=== PATIENT | male | born 1975 | race Caucasian/White ===

== ENCOUNTER 2021-12-24 02:44 | Inpatient (IN) | payer OTHER ==
[2021-12-24] MEDS ORDERED: P-EPHED 60MG/TRIPROLIDI 2.5MG TABLET PO PRN (03:37)
[2021-12-24] MEDS ORDERED: MAGNESIUM CITRATE 300 ML BOTTLE PO PRN (03:37)
[2021-12-24] MEDS ORDERED: NALOXONE HCL 0.4 MG/ML VIAL IM PRN (03:37)
[2021-12-24] MEDS ORDERED: ONDANSETRON *ODT* 4 MG TABLET SL PRN (03:37)
[2021-12-24] MEDS ORDERED: LOPERAMIDE HCL 2 MG CAPSULE PO PRN (03:37)
[2021-12-24] MEDS ORDERED: MAG HYDROX/AL HYDROX/SIMETH 30 ML UNIT-DOSE CUP PO PRN (03:37)
[2021-12-24] MEDS ORDERED: MAGNESIUM HYDROX 2400MG/30ML ORAL SUSPENSION 30 ML CUP PO PRN (03:37)
[2021-12-24] MEDS ORDERED: BENZOCAINE/MENTHOL (CHLORASEPTIC ) LOZENGE MM PRN (03:37)
[2021-12-24] MEDS ORDERED: guaiFENesin 200 MG/10 ML 10 ML UNIT-DOSE CUPS PO PRN (03:37)
[2021-12-24] MEDS ORDERED: NICOTINE POLACRILEX 2 MG GUM BUC PRN (03:37)
[2021-12-24] MEDS ORDERED: hydrOXYzine PAMOATE 25 MG CAPSULE (FP) PO PRN (03:37)
[2021-12-24] MEDS ORDERED: DICYCLOMINE HCL 10 MG CAPSULE PO PRN (03:37)
[2021-12-24] MEDS ORDERED: BISMUTH SUBSALICYLATE 524 MG/30 ML PO PRN (03:37)
[2021-12-24] MEDS ORDERED: ACETAMINOPHEN 325 MG TABLET (FP) PO PRN ×2 (03:37)
[2021-12-24 10:04] VITALS: BMI 50.2
[2021-12-24] MEDS ORDERED: methaDONE HCL 10 MG TABLET PO SCH (10:15)
[2021-12-24] MEDS ORDERED: chlordiazePOXIDE HCL 25 MG CAPSULE PO PRN (10:24)
[2021-12-24] MEDS ORDERED: methaDONE HCL 10 MG TABLET ONE (10:41)
[2021-12-24] MEDS ORDERED: methaDONE HCL 40 MG DISPERSABLE TABLET ONE (10:41)
[2021-12-24] MEDS: chlordiazePOXIDE HCL 25 MG CAPSULE PO SCH ×3 (10:45→22:37)
[2021-12-24] MEDS: PRENATAL VITAMINS W/ FOLIC ACID TABLET (FP) PO SCH (10:55)
[2021-12-24] MEDS: METHOCARBAMOL 500 MG TABLET PO PRN (10:55)
[2021-12-24] MEDS: LISINOPRIL 10 MG TABLET PO SCH (10:55)
[2021-12-24] MEDS: INSULIN (NOVOLOG) ASPART 100 UNITS/ML 10ML VIAL SQ SCH ×3 (12:28→22:36)
[2021-12-24] MEDS: NICOTINE 14 MG/24 HOURS TOPICAL PATCH TD SCH (12:28)
[2021-12-24] MEDS: BACITRACIN 15 GM TUBE TOPICAL OINTMENT TP SCH (12:29)
[2021-12-24] MEDS: TORSEMIDE 20 MG TABLET (FP) PO SCH ×2 (12:29→22:35)
[2021-12-24] MEDS: SILVER SULFADIAZINE 1% TOP CREAM 50 GM JAR TP SCH ×2 (12:30→22:38)
[2021-12-24] MEDS ORDERED: INSULIN SLIDING SCALE (NOVOLOG) 1 VIAL SQ ONE ×2 (12:32→17:07)
[2021-12-24 15:08] LABS: PH,URINE 6.5 (5.0-8.0); URINE APPEARANCE CLEAR; URINE BILIRUBIN NEGATIVE (NEGATIVE); URINE COLOR YELLOW; URINE GLUCOSE (UA) 3+ (NEGATIVE); URINE KETONE NEGATIVE (NEGATIVE); URINE LEUK ESTERASE NEGATIVE (NEGATIVE); URINE NITRITE NEGATIVE (NEGATIVE); URINE PROTEIN NEGATIVE (NEGATIVE); URINE UROBILINOGEN 0.2 mg/dL (0.2-1.0)
[2021-12-24] MEDS ORDERED: INSULIN (NOVOLOG) ASPART 100 UNITS/ML 10ML VIAL SQ ONE (16:56)
[2021-12-24] MEDS: metFORMIN HCL 500 MG TABLET (FP) PO SCH (17:15)
[2021-12-24] MEDS: INSULIN (LEVEMIR) 100 UNITS/ML UNITS SQ SCH (22:35)
[2021-12-24] MEDS: CARVEDILOL 25 MG TABLET (FP) PO SCH (22:35)
[2021-12-24] MEDS: MELATONIN 5 MG TABLETS PO SCH (22:36)
[2021-12-24] MEDS: THIAMINE HCL 100 MG TABLET (FP) PO SCH (22:38)
[2021-12-25] MEDS ORDERED: methaDONE HCL 10 MG TABLET ONE (04:15)
[2021-12-25] MEDS ORDERED: methaDONE HCL 40 MG DISPERSABLE TABLET ONE (04:15)
[2021-12-25] MEDS: INSULIN (NOVOLOG) ASPART 100 UNITS/ML 10ML VIAL SQ SCH ×4 (06:21→21:58)
[2021-12-25] MEDS: metFORMIN HCL 500 MG TABLET (FP) PO SCH ×2 (06:22→18:26)
[2021-12-25] MEDS: chlordiazePOXIDE HCL 25 MG CAPSULE PO SCH ×4 (06:41→22:33)
[2021-12-25] MEDS: INSULIN (LEVEMIR) 100 UNITS/ML UNITS SQ SCH ×2 (09:01→21:59)
[2021-12-25] MEDS: DIGOXIN 0.125 MG TABLET PO SCH (10:29)
[2021-12-25] MEDS: LISINOPRIL 10 MG TABLET PO SCH (10:30)
[2021-12-25] MEDS: NICOTINE 14 MG/24 HOURS TOPICAL PATCH TD SCH (10:30)
[2021-12-25] MEDS: TORSEMIDE 20 MG TABLET (FP) PO SCH ×2 (10:30→22:33)
[2021-12-25] MEDS: PRENATAL VITAMINS W/ FOLIC ACID TABLET (FP) PO SCH (10:31)
[2021-12-25] MEDS: IBUPROFEN 400 MG TABLET (FP) PO PRN ×2 (10:31→18:30)
[2021-12-25] MEDS: CARVEDILOL 25 MG TABLET (FP) PO SCH ×2 (10:33→22:33)
[2021-12-25] MEDS: SILVER SULFADIAZINE 1% TOP CREAM 50 GM JAR TP SCH ×2 (10:33→23:07)
[2021-12-25] MEDS: BACITRACIN 0.9 GM PACKET TP SCH (11:01)
[2021-12-25] MEDS: BACITRACIN 15 GM TUBE TOPICAL OINTMENT TP SCH (11:03)
[2021-12-25] MEDS ORDERED: INSULIN SLIDING SCALE (NOVOLOG) 1 VIAL SQ ONE ×2 (12:51→21:58)
[2021-12-25] MEDS: THIAMINE HCL 100 MG TABLET (FP) PO SCH (22:33)
[2021-12-25] MEDS: MELATONIN 5 MG TABLETS PO SCH (22:34)
[2021-12-25] MEDS: METHOCARBAMOL 500 MG TABLET PO PRN (22:36)
[2021-12-26] MEDS ORDERED: methaDONE HCL 10 MG TABLET ONE (04:52)
[2021-12-26] MEDS ORDERED: methaDONE HCL 40 MG DISPERSABLE TABLET ONE (04:52)
[2021-12-26] MEDS: chlordiazePOXIDE HCL 25 MG CAPSULE PO SCH ×4 (05:31→23:51)
[2021-12-26] MEDS: IBUPROFEN 400 MG TABLET (FP) PO PRN ×2 (05:33→18:40)
[2021-12-26] MEDS: metFORMIN HCL 500 MG TABLET (FP) PO SCH ×2 (06:45→17:30)
[2021-12-26] MEDS: INSULIN (NOVOLOG) ASPART 100 UNITS/ML 10ML VIAL SQ SCH ×4 (08:03→23:30)
[2021-12-26] MEDS: INSULIN (LEVEMIR) 100 UNITS/ML UNITS SQ SCH ×2 (09:50→23:45)
[2021-12-26] MEDS: NICOTINE 14 MG/24 HOURS TOPICAL PATCH TD SCH (10:45)
[2021-12-26] MEDS: BACITRACIN 0.9 GM PACKET TP SCH (10:46)
[2021-12-26] MEDS: SILVER SULFADIAZINE 1% TOP CREAM 50 GM JAR TP SCH ×2 (10:46→23:50)
[2021-12-26] MEDS: PRENATAL VITAMINS W/ FOLIC ACID TABLET (FP) PO SCH (10:47)
[2021-12-26] MEDS: DIGOXIN 0.125 MG TABLET PO SCH (10:47)
[2021-12-26] MEDS: TORSEMIDE 20 MG TABLET (FP) PO SCH ×2 (10:47→23:30)
[2021-12-26] MEDS: CARVEDILOL 25 MG TABLET (FP) PO SCH ×2 (10:47→23:30)
[2021-12-26] MEDS: LISINOPRIL 10 MG TABLET PO SCH (10:47)
[2021-12-26] MEDS: METHOCARBAMOL 500 MG TABLET PO PRN (10:49)
[2021-12-26 10:50] LABS: HEMATOCRIT 38.8 % (35.4-49); HEMOGLOBIN 12.6 GM/dL (11.7-16.9); MCH 31.2 pg (25.7-33.7); MCHC 32.3 g/dl (32.0-35.9); MEAN CELL VOLUME 96.6 fl (80-96); MEAN PLT VOLUME 12.5 fl (7.5-11.1); PLATELET COUNT 143 10^3/uL (134-434); RBC 4.02 M/mm3 (4.00-5.60); WHITE BLOOD COUNT 8.7 K/mm3 (4.0-10.0)
[2021-12-26 10:58] LABS: CHLORIDE 95 mmol/L (98-107); SODIUM 134 mmol/L (136-145)
[2021-12-26 11:06] LABS: ANION GAP 6 MMOL/L (8-16); BLOOD UREA NITROGEN 37.1 mg/dL (7-18); CALCIUM 9.3 mg/dL (8.5-10.1); CO2 33 mmol/L (21-32)
[2021-12-26 11:09] LABS: SGOT/AST 19 U/L (15-37); SGPT/ALT 39 U/L (13-61)
[2021-12-26 11:10] LABS: CREATININE 1.5 mg/dL (0.55-1.3)
[2021-12-26 11:11] LABS: BILIRUBIN,TOTAL 0.7 mg/dL (0.2-1); TOT PROT 6.8 g/dl (6.4-8.2)
[2021-12-26 11:12] LABS: ALK PHOS 107 U/L (45-117)
[2021-12-26 11:21] LABS: GLUCOSE,RANDOM 426 mg/dL (74-106)
[2021-12-26] MEDS ORDERED: INSULIN SLIDING SCALE (NOVOLOG) 1 VIAL SQ ONE ×3 (11:46→17:19)
[2021-12-26] MEDS: MELATONIN 5 MG TABLETS PO SCH (23:50)
[2021-12-26] MEDS: THIAMINE HCL 100 MG TABLET (FP) PO SCH (23:51)
[2021-12-27] MEDS ORDERED: chlordiazePOXIDE HCL 10 MG CAPSULE PO PRN
[2021-12-27] MEDS ORDERED: methaDONE HCL 40 MG DISPERSABLE TABLET ONE (04:32)
[2021-12-27] MEDS ORDERED: methaDONE HCL 10 MG TABLET ONE (04:32)
[2021-12-27] MEDS: chlordiazePOXIDE HCL 10 MG CAPSULE PO SCH ×4 (07:20→22:38)
[2021-12-27] MEDS: metFORMIN HCL 500 MG TABLET (FP) PO SCH ×2 (07:25→16:37)
[2021-12-27] MEDS ORDERED: INSULIN SLIDING SCALE (NOVOLOG) 1 VIAL SQ ONE ×4 (07:26→16:31)
[2021-12-27] MEDS: IBUPROFEN 400 MG TABLET (FP) PO PRN (07:28)
[2021-12-27] MEDS: INSULIN (NOVOLOG) ASPART 100 UNITS/ML 10ML VIAL SQ SCH ×4 (07:30→22:38)
[2021-12-27] MEDS: INSULIN (LEVEMIR) 100 UNITS/ML UNITS SQ SCH ×2 (09:46→22:37)
[2021-12-27] MEDS: SILVER SULFADIAZINE 1% TOP CREAM 50 GM JAR TP SCH ×2 (10:34→22:38)
[2021-12-27] MEDS: LISINOPRIL 10 MG TABLET PO SCH (10:34)
[2021-12-27] MEDS: CARVEDILOL 25 MG TABLET (FP) PO SCH ×2 (10:36→22:30)
[2021-12-27] MEDS: BACITRACIN 0.9 GM PACKET TP SCH (10:36)
[2021-12-27] MEDS: TORSEMIDE 20 MG TABLET (FP) PO SCH ×2 (10:37→22:30)
[2021-12-27] MEDS: DIGOXIN 0.125 MG TABLET PO SCH (10:37)
[2021-12-27] MEDS: PRENATAL VITAMINS W/ FOLIC ACID TABLET (FP) PO SCH (10:38)
[2021-12-27] MEDS: NICOTINE 14 MG/24 HOURS TOPICAL PATCH TD SCH (10:38)
[2021-12-27] MEDS: MELATONIN 5 MG TABLETS PO SCH (22:32)
[2021-12-27] MEDS: THIAMINE HCL 100 MG TABLET (FP) PO SCH (22:38)
[2021-12-28] MEDS ORDERED: methaDONE HCL 40 MG DISPERSABLE TABLET ONE (03:33)
[2021-12-28] MEDS ORDERED: methaDONE HCL 10 MG TABLET ONE (03:33)
[2021-12-28] MEDS ORDERED: INSULIN SLIDING SCALE (NOVOLOG) 1 VIAL SQ ONE ×3 (05:36→12:04)
[2021-12-28] MEDS: chlordiazePOXIDE HCL 10 MG CAPSULE PO SCH ×2 (05:37→18:43)
[2021-12-28] MEDS: metFORMIN HCL 500 MG TABLET (FP) PO SCH ×2 (06:05→17:24)
[2021-12-28] MEDS: INSULIN (NOVOLOG) ASPART 100 UNITS/ML 10ML VIAL SQ SCH ×4 (06:40→21:49)
[2021-12-28] MEDS: NICOTINE 14 MG/24 HOURS TOPICAL PATCH TD SCH (11:18)
[2021-12-28] MEDS: LISINOPRIL 10 MG TABLET PO SCH (11:18)
[2021-12-28] MEDS: PRENATAL VITAMINS W/ FOLIC ACID TABLET (FP) PO SCH (11:18)
[2021-12-28] MEDS: SILVER SULFADIAZINE 1% TOP CREAM 50 GM JAR TP SCH ×2 (11:18→23:05)
[2021-12-28] MEDS: DIGOXIN 0.125 MG TABLET PO SCH (11:19)
[2021-12-28] MEDS: BACITRACIN 0.9 GM PACKET TP SCH (11:20)
[2021-12-28] MEDS: CARVEDILOL 25 MG TABLET (FP) PO SCH ×2 (11:20→21:51)
[2021-12-28] MEDS: TORSEMIDE 20 MG TABLET (FP) PO SCH ×2 (11:20→21:51)
[2021-12-28] MEDS: INSULIN (LEVEMIR) 100 UNITS/ML UNITS SQ SCH ×2 (11:34→21:48)
[2021-12-28] MEDS: MELATONIN 5 MG TABLETS PO SCH (21:51)
[2021-12-28] MEDS: THIAMINE HCL 100 MG TABLET (FP) PO SCH (21:51)
[2021-12-28] MEDS: IBUPROFEN 400 MG TABLET (FP) PO PRN (22:06)
[2021-12-29] MEDS ORDERED: methaDONE HCL 40 MG DISPERSABLE TABLET ONE (04:16)
[2021-12-29] MEDS ORDERED: methaDONE HCL 10 MG TABLET ONE (04:16)
[2021-12-29] MEDS ORDERED: chlordiazePOXIDE HCL 10 MG CAPSULE PO ONE (05:00)
[2021-12-29] MEDS: INSULIN (NOVOLOG) ASPART 100 UNITS/ML 10ML VIAL SQ SCH ×2 (06:23→11:59)
[2021-12-29] MEDS: metFORMIN HCL 500 MG TABLET (FP) PO SCH (06:23)
[2021-12-29] MEDS ORDERED: INSULIN SLIDING SCALE (NOVOLOG) 1 VIAL SQ ONE ×2 (06:33→12:00)
[2021-12-29] MEDS: TORSEMIDE 20 MG TABLET (FP) PO SCH (10:39)
[2021-12-29] MEDS: BACITRACIN 0.9 GM PACKET TP SCH (10:39)
[2021-12-29] MEDS: CARVEDILOL 25 MG TABLET (FP) PO SCH (10:39)
[2021-12-29] MEDS: NICOTINE 14 MG/24 HOURS TOPICAL PATCH TD SCH (10:40)
[2021-12-29] MEDS: LISINOPRIL 10 MG TABLET PO SCH (10:40)
[2021-12-29] MEDS: PRENATAL VITAMINS W/ FOLIC ACID TABLET (FP) PO SCH (10:40)
[2021-12-29] MEDS: DIGOXIN 0.125 MG TABLET PO SCH (10:40)
[2021-12-29] MEDS: INSULIN (LEVEMIR) 100 UNITS/ML UNITS SQ SCH (10:42)
[2021-12-29] MEDS: SILVER SULFADIAZINE 1% TOP CREAM 50 GM JAR TP SCH (10:44)
[2021-12-29 13:07] VITALS: BP 115/64; PULSE 84; TEMP 98.2
[2021-12-30] MEDS ORDERED: methaDONE HCL 10 MG TABLET PO SCH (06:00)
== END 2021-12-29 15:01 | disposition other institution (70) | DRG 773 ==
LOC: YASAS 02:44 → Y3N 04:18
PROVIDERS: ADMIT Allergy & Immunology; ATTEND Surgery
PROC: HZ2ZZZZ Detoxification Services for Substance Abuse Treatment (ICD-10-PCS; principal; 2021-12-24)
DX: F10.230 Alcohol dependence with withdrawal, uncomplicated (principal); F11.20 Opioid dependence, uncomplicated; F14.20 Cocaine dependence, uncomplicated; F17.210 Nicotine dependence, cigarettes, uncomplicated; F19.24 Other psychoactive substance dependence with psychoactive substance-induced mood disorder; F34.1 Dysthymic disorder; I25.10 Atherosclerotic heart disease of native coronary artery without angina pectoris; I13.0 Hypertensive heart and chronic kidney disease with heart failure and stage 1 through stage 4 chronic kidney disease, or unspecified chronic kidney disease; I50.9 Heart failure, unspecified; N17.9 Acute kidney failure, unspecified; E88.09 Other disorders of plasma-protein metabolism, not elsewhere classified; E11.65 Type 2 diabetes mellitus with hyperglycemia; E11.622 Type 2 diabetes mellitus with other skin ulcer; L97.328 Non-pressure chronic ulcer of left ankle with other specified severity; I83.12 Varicose veins of left lower extremity with inflammation; I87.8 Other specified disorders of veins; Z79.4 Long term (current) use of insulin; E66.01 Morbid (severe) obesity due to excess calories; Z68.43 Body mass index [BMI] 50.0-59.9, adult; Z95.0 Presence of cardiac pacemaker; Z91.041 Radiographic dye allergy status; Z28.310 Unvaccinated for COVID-19
CPT/HCPCS: 36415; 73610-TC-LT-FY; 73630-TC-LT; 80053; 80162; 81003; 82962; 83036; 85025; 85027; 85651; 86140; 86780; 93005; 93010; 99281-25; C9803-CS; U0003; U0005

== ENCOUNTER 2021-12-29 15:14 | Inpatient (IN) | payer OTHER ==
[2021-12-29] MEDS ORDERED: MAGNESIUM CITRATE 300 ML BOTTLE PO PRN (16:07)
[2021-12-29] MEDS ORDERED: NICOTINE 10 MG CARTRIDGE (INHALER) IH PRN (16:07)
[2021-12-29] MEDS ORDERED: MAGNESIUM HYDROX 2400MG/30ML ORAL SUSPENSION 30 ML CUP PO PRN (16:07)
[2021-12-29] MEDS ORDERED: P-EPHED 60MG/TRIPROLIDI 2.5MG TABLET PO PRN (16:07)
[2021-12-29] MEDS ORDERED: BENZOCAINE/MENTHOL (CHLORASEPTIC ) LOZENGE MM PRN (16:07)
[2021-12-29] MEDS ORDERED: LOPERAMIDE HCL 2 MG CAPSULE PO PRN (16:07)
[2021-12-29] MEDS ORDERED: guaiFENesin 200 MG/10 ML 10 ML UNIT-DOSE CUPS PO PRN (16:07)
[2021-12-29] MEDS: PRENATAL VITAMINS W/ FOLIC ACID TABLET (FP) PO SCH (16:57)
[2021-12-29] MEDS: NICOTINE 7 MG/24 HOURS TOPICAL PATCH TD SCH (17:16)
[2021-12-29] MEDS: MAG HYDROX/AL HYDROX/SIMETH 30 ML UNIT-DOSE CUP PO PRN (17:36)
[2021-12-29] MEDS: hydrOXYzine PAMOATE 25 MG CAPSULE (FP) PO SCH ×2 (17:36→21:45)
[2021-12-29] MEDS ORDERED: metFORMIN HCL 500 MG TABLET (FP) PO ONE (17:42)
[2021-12-29] MEDS: CARVEDILOL 25 MG TABLET (FP) PO SCH (21:45)
[2021-12-29] MEDS: THIAMINE HCL 100 MG TABLET (FP) PO SCH (21:45)
[2021-12-29] MEDS: MELATONIN 5 MG TABLETS PO SCH (21:45)
[2021-12-29] MEDS: INSULIN (LEVEMIR) 100 UNITS/ML UNITS SQ SCH (21:51)
[2021-12-30] MEDS ORDERED: methaDONE HCL 10 MG TABLET PO SCH (06:00)
[2021-12-30] MEDS: TORSEMIDE 20 MG TABLET (FP) PO SCH ×2 (06:28→14:28)
[2021-12-30] MEDS: hydrOXYzine PAMOATE 25 MG CAPSULE (FP) PO SCH ×5 (06:29→21:10)
[2021-12-30] MEDS ORDERED: methaDONE HCL 40 MG DISPERSABLE TABLET ONE (06:29)
[2021-12-30] MEDS ORDERED: methaDONE HCL 10 MG TABLET ONE (06:29)
[2021-12-30] MEDS: metFORMIN HCL 500 MG TABLET (FP) PO SCH ×2 (06:37→17:05)
[2021-12-30] MEDS: IBUPROFEN 400 MG TABLET (FP) PO PRN ×2 (08:03→21:10)
[2021-12-30] MEDS: INSULIN (LEVEMIR) 100 UNITS/ML UNITS SQ SCH ×2 (09:35→21:49)
[2021-12-30] MEDS: DIGOXIN 0.125 MG TABLET PO SCH (09:37)
[2021-12-30] MEDS: NICOTINE 7 MG/24 HOURS TOPICAL PATCH TD SCH (09:37)
[2021-12-30] MEDS: CARVEDILOL 25 MG TABLET (FP) PO SCH ×2 (09:37→21:09)
[2021-12-30] MEDS: PRENATAL VITAMINS W/ FOLIC ACID TABLET (FP) PO SCH (09:37)
[2021-12-30] MEDS: LISINOPRIL 10 MG TABLET PO SCH (09:38)
[2021-12-30] MEDS: MAG HYDROX/AL HYDROX/SIMETH 30 ML UNIT-DOSE CUP PO PRN (12:18)
[2021-12-30] MEDS ORDERED: INSULIN (NOVOLOG) ASPART 100 UNITS/ML 10ML VIAL ONE (18:06)
[2021-12-30] MEDS: INSULIN SLIDING SCALE (NOVOLOG) 1 VIAL SQ SCH ×2 (18:07→21:09)
[2021-12-30] MEDS: MELATONIN 5 MG TABLETS PO SCH (21:10)
[2021-12-30] MEDS: THIAMINE HCL 100 MG TABLET (FP) PO SCH (21:10)
[2021-12-31] MEDS ORDERED: methaDONE HCL 40 MG DISPERSABLE TABLET ONE (04:28)
[2021-12-31] MEDS ORDERED: methaDONE HCL 10 MG TABLET ONE (04:28)
[2021-12-31] MEDS: TORSEMIDE 20 MG TABLET (FP) PO SCH ×2 (06:41→15:11)
[2021-12-31] MEDS: INSULIN SLIDING SCALE (NOVOLOG) 1 VIAL SQ SCH ×4 (07:09→21:19)
[2021-12-31] MEDS: hydrOXYzine PAMOATE 25 MG CAPSULE (FP) PO SCH ×3 (07:11→13:39)
[2021-12-31] MEDS: metFORMIN HCL 500 MG TABLET (FP) PO SCH ×2 (07:11→17:12)
[2021-12-31] MEDS ORDERED: INSULIN (NOVOLOG) ASPART 100 UNITS/ML 10ML VIAL ONE ×2 (07:13→12:00)
[2021-12-31] MEDS: INSULIN (LEVEMIR) 100 UNITS/ML UNITS SQ SCH ×2 (07:14→21:52)
[2021-12-31] MEDS: DIGOXIN 0.125 MG TABLET PO SCH (09:46)
[2021-12-31] MEDS: CARVEDILOL 25 MG TABLET (FP) PO SCH ×2 (09:46→21:18)
[2021-12-31] MEDS: LISINOPRIL 10 MG TABLET PO SCH (09:47)
[2021-12-31] MEDS: NICOTINE 7 MG/24 HOURS TOPICAL PATCH TD SCH (09:47)
[2021-12-31] MEDS: PRENATAL VITAMINS W/ FOLIC ACID TABLET (FP) PO SCH (09:47)
[2021-12-31] MEDS: MAG HYDROX/AL HYDROX/SIMETH 30 ML UNIT-DOSE CUP PO PRN (09:48)
[2021-12-31] MEDS ORDERED: hydrOXYzine PAMOATE 25 MG CAPSULE (FP) PO PRN (15:35)
[2021-12-31] MEDS: ACETAMINOPHEN 325 MG TABLET (FP) PO PRN (17:12)
[2021-12-31] MEDS: MELATONIN 5 MG TABLETS PO SCH (21:17)
[2021-12-31] MEDS: THIAMINE HCL 100 MG TABLET (FP) PO SCH (21:18)
[2021-12-31] MEDS: IBUPROFEN 400 MG TABLET (FP) PO PRN (21:18)
[2022-01-01] MEDS ORDERED: methaDONE HCL 10 MG TABLET ONE (03:19)
[2022-01-01] MEDS ORDERED: methaDONE HCL 40 MG DISPERSABLE TABLET ONE (03:20)
[2022-01-01] MEDS: metFORMIN HCL 500 MG TABLET (FP) PO SCH ×2 (06:12→17:25)
[2022-01-01] MEDS: ACETAMINOPHEN 325 MG TABLET (FP) PO PRN ×2 (06:12→17:26)
[2022-01-01] MEDS: TORSEMIDE 20 MG TABLET (FP) PO SCH ×2 (06:12→14:37)
[2022-01-01] MEDS: INSULIN SLIDING SCALE (NOVOLOG) 1 VIAL SQ SCH ×4 (06:25→22:18)
[2022-01-01] MEDS: INSULIN (LEVEMIR) 100 UNITS/ML UNITS SQ SCH ×2 (06:50→22:15)
[2022-01-01] MEDS: LISINOPRIL 10 MG TABLET PO SCH (10:28)
[2022-01-01] MEDS: CARVEDILOL 25 MG TABLET (FP) PO SCH ×2 (10:28→21:47)
[2022-01-01] MEDS: NICOTINE 7 MG/24 HOURS TOPICAL PATCH TD SCH (10:29)
[2022-01-01] MEDS: DIGOXIN 0.125 MG TABLET PO SCH (10:29)
[2022-01-01] MEDS: PRENATAL VITAMINS W/ FOLIC ACID TABLET (FP) PO SCH (10:29)
[2022-01-01] MEDS ORDERED: INSULIN (NOVOLOG) ASPART 100 UNITS/ML 10ML VIAL ONE ×3 (12:06→22:15)
[2022-01-01] MEDS: IBUPROFEN 400 MG TABLET (FP) PO PRN ×2 (12:07→21:49)
[2022-01-01] MEDS ORDERED: SILVER SULFADIAZINE 1% TOP CREAM 400 GM JAR TP SCH (13:45)
[2022-01-01] MEDS: WITCH HAZEL 50% (TUCKS) 40 PAD/JAR PAD TP PRN (14:36)
[2022-01-01] MEDS: HYDROCORTISONE 2.5% TOPICAL CREAM 30 GM TUBE TP SCH ×2 (14:45→21:58)
[2022-01-01] MEDS: MELATONIN 5 MG TABLETS PO SCH (21:47)
[2022-01-01] MEDS: THIAMINE HCL 100 MG TABLET (FP) PO SCH (21:47)
[2022-01-01] MEDS: DOCUSATE SODIUM 100 MG CAPSULE (FP) PO SCH (21:50)
[2022-01-02] MEDS ORDERED: methaDONE HCL 10 MG TABLET ONE (03:15)
[2022-01-02] MEDS ORDERED: methaDONE HCL 40 MG DISPERSABLE TABLET ONE (03:15)
[2022-01-02] MEDS: metFORMIN HCL 500 MG TABLET (FP) PO SCH ×2 (06:41→17:06)
[2022-01-02] MEDS: DOCUSATE SODIUM 100 MG CAPSULE (FP) PO SCH ×3 (06:41→21:11)
[2022-01-02] MEDS: TORSEMIDE 20 MG TABLET (FP) PO SCH ×2 (06:41→13:12)
[2022-01-02] MEDS: INSULIN SLIDING SCALE (NOVOLOG) 1 VIAL SQ SCH ×4 (06:43→21:15)
[2022-01-02] MEDS: INSULIN (LEVEMIR) 100 UNITS/ML UNITS SQ SCH ×2 (06:51→21:13)
[2022-01-02] MEDS: ACETAMINOPHEN 325 MG TABLET (FP) PO PRN ×2 (08:52→18:46)
[2022-01-02] MEDS: WITCH HAZEL 50% (TUCKS) 40 PAD/JAR PAD TP PRN (10:10)
[2022-01-02] MEDS: NICOTINE 7 MG/24 HOURS TOPICAL PATCH TD SCH (10:11)
[2022-01-02] MEDS: HYDROCORTISONE 2.5% TOPICAL CREAM 30 GM TUBE TP SCH ×2 (10:11→21:11)
[2022-01-02] MEDS: CARVEDILOL 25 MG TABLET (FP) PO SCH ×2 (10:11→21:11)
[2022-01-02] MEDS: PRENATAL VITAMINS W/ FOLIC ACID TABLET (FP) PO SCH (10:11)
[2022-01-02] MEDS: DIGOXIN 0.125 MG TABLET PO SCH (10:12)
[2022-01-02] MEDS: SILVER SULFADIAZINE 1% TOP CREAM 50 GM JAR TP SCH (10:12)
[2022-01-02] MEDS: LISINOPRIL 10 MG TABLET PO SCH (10:13)
[2022-01-02] MEDS ORDERED: INSULIN (NOVOLOG) ASPART 100 UNITS/ML 10ML VIAL ONE ×2 (12:08→17:06)
[2022-01-02] MEDS: THIAMINE HCL 100 MG TABLET (FP) PO SCH (21:11)
[2022-01-02] MEDS: MELATONIN 5 MG TABLETS PO SCH (21:12)
[2022-01-03] MEDS ORDERED: methaDONE HCL 40 MG DISPERSABLE TABLET ONE (03:21)
[2022-01-03] MEDS ORDERED: methaDONE HCL 10 MG TABLET ONE (03:21)
[2022-01-03] MEDS: DOCUSATE SODIUM 100 MG CAPSULE (FP) PO SCH ×3 (06:32→21:26)
[2022-01-03] MEDS: TORSEMIDE 20 MG TABLET (FP) PO SCH ×2 (06:32→14:28)
[2022-01-03] MEDS: metFORMIN HCL 500 MG TABLET (FP) PO SCH ×2 (06:32→17:31)
[2022-01-03] MEDS: INSULIN SLIDING SCALE (NOVOLOG) 1 VIAL SQ SCH ×4 (06:32→22:17)
[2022-01-03] MEDS: INSULIN (LEVEMIR) 100 UNITS/ML UNITS SQ SCH ×2 (07:11→22:17)
[2022-01-03] MEDS: DIGOXIN 0.125 MG TABLET PO SCH (10:20)
[2022-01-03] MEDS: LISINOPRIL 10 MG TABLET PO SCH (10:20)
[2022-01-03] MEDS: CARVEDILOL 25 MG TABLET (FP) PO SCH ×2 (10:20→21:26)
[2022-01-03] MEDS: PRENATAL VITAMINS W/ FOLIC ACID TABLET (FP) PO SCH (10:21)
[2022-01-03] MEDS: NICOTINE 7 MG/24 HOURS TOPICAL PATCH TD SCH (10:21)
[2022-01-03] MEDS: SILVER SULFADIAZINE 1% TOP CREAM 50 GM JAR TP SCH (10:21)
[2022-01-03] MEDS: HYDROCORTISONE 2.5% TOPICAL CREAM 30 GM TUBE TP SCH ×2 (10:21→22:10)
[2022-01-03] MEDS ORDERED: INSULIN (NOVOLOG) ASPART 100 UNITS/ML 10ML VIAL ONE (11:42)
[2022-01-03] MEDS: IBUPROFEN 400 MG TABLET (FP) PO PRN ×2 (11:44→21:26)
[2022-01-03] MEDS: MELATONIN 5 MG TABLETS PO SCH (21:26)
[2022-01-03] MEDS: THIAMINE HCL 100 MG TABLET (FP) PO SCH (21:26)
[2022-01-04] MEDS ORDERED: methaDONE HCL 40 MG DISPERSABLE TABLET ONE (03:14)
[2022-01-04] MEDS ORDERED: methaDONE HCL 10 MG TABLET ONE (03:14)
[2022-01-04] MEDS: metFORMIN HCL 500 MG TABLET (FP) PO SCH ×2 (06:12→17:00)
[2022-01-04] MEDS: TORSEMIDE 20 MG TABLET (FP) PO SCH ×2 (06:12→13:56)
[2022-01-04] MEDS: DOCUSATE SODIUM 100 MG CAPSULE (FP) PO SCH ×3 (06:12→21:14)
[2022-01-04] MEDS: INSULIN (LEVEMIR) 100 UNITS/ML UNITS SQ SCH ×2 (06:36→21:15)
[2022-01-04] MEDS: INSULIN SLIDING SCALE (NOVOLOG) 1 VIAL SQ SCH ×4 (06:55→21:15)
[2022-01-04] MEDS: IBUPROFEN 400 MG TABLET (FP) PO PRN (08:42)
[2022-01-04] MEDS: HYDROCORTISONE 2.5% TOPICAL CREAM 30 GM TUBE TP SCH ×2 (09:30→21:14)
[2022-01-04] MEDS: DIGOXIN 0.125 MG TABLET PO SCH (09:30)
[2022-01-04] MEDS: CARVEDILOL 25 MG TABLET (FP) PO SCH ×2 (09:31→21:14)
[2022-01-04] MEDS: PRENATAL VITAMINS W/ FOLIC ACID TABLET (FP) PO SCH (09:31)
[2022-01-04] MEDS: LISINOPRIL 10 MG TABLET PO SCH (09:31)
[2022-01-04] MEDS: SILVER SULFADIAZINE 1% TOP CREAM 50 GM JAR TP SCH (09:31)
[2022-01-04] MEDS: NICOTINE 7 MG/24 HOURS TOPICAL PATCH TD SCH (09:31)
[2022-01-04] MEDS: MAG HYDROX/AL HYDROX/SIMETH 30 ML UNIT-DOSE CUP PO PRN (10:11)
[2022-01-04] MEDS: THIAMINE HCL 100 MG TABLET (FP) PO SCH (21:14)
[2022-01-04] MEDS: MELATONIN 5 MG TABLETS PO SCH (21:15)
[2022-01-04] MEDS: APIXABAN 5 MG TABLET PO SCH (21:18)
[2022-01-05] MEDS ORDERED: methaDONE HCL 10 MG TABLET ONE (04:15)
[2022-01-05] MEDS ORDERED: methaDONE HCL 40 MG DISPERSABLE TABLET ONE (04:16)
[2022-01-05] MEDS: TORSEMIDE 20 MG TABLET (FP) PO SCH ×2 (06:43→14:24)
[2022-01-05] MEDS: DOCUSATE SODIUM 100 MG CAPSULE (FP) PO SCH ×3 (06:43→21:03)
[2022-01-05] MEDS: metFORMIN HCL 500 MG TABLET (FP) PO SCH ×2 (06:43→16:28)
[2022-01-05] MEDS: INSULIN SLIDING SCALE (NOVOLOG) 1 VIAL SQ SCH ×4 (06:44→21:07)
[2022-01-05] MEDS: INSULIN (LEVEMIR) 100 UNITS/ML UNITS SQ SCH ×2 (06:49→21:05)
[2022-01-05] MEDS: CARVEDILOL 25 MG TABLET (FP) PO SCH ×2 (09:04→21:03)
[2022-01-05] MEDS: HYDROCORTISONE 2.5% TOPICAL CREAM 30 GM TUBE TP SCH ×2 (09:04→21:07)
[2022-01-05] MEDS: DIGOXIN 0.125 MG TABLET PO SCH (09:04)
[2022-01-05] MEDS: APIXABAN 5 MG TABLET PO SCH ×2 (09:04→21:03)
[2022-01-05] MEDS: NICOTINE 7 MG/24 HOURS TOPICAL PATCH TD SCH (09:05)
[2022-01-05] MEDS: SILVER SULFADIAZINE 1% TOP CREAM 50 GM JAR TP SCH (09:05)
[2022-01-05] MEDS: PRENATAL VITAMINS W/ FOLIC ACID TABLET (FP) PO SCH (09:05)
[2022-01-05] MEDS: LISINOPRIL 10 MG TABLET PO SCH (09:05)
[2022-01-05] MEDS: ACETAMINOPHEN 325 MG TABLET (FP) PO PRN (09:06)
[2022-01-05] MEDS: WITCH HAZEL 50% (TUCKS) 40 PAD/JAR PAD TP PRN (09:07)
[2022-01-05] MEDS: THIAMINE HCL 100 MG TABLET (FP) PO SCH (21:03)
[2022-01-05] MEDS: MELATONIN 5 MG TABLETS PO SCH (21:03)
[2022-01-06] MEDS ORDERED: methaDONE HCL 40 MG DISPERSABLE TABLET ONE (06:14)
[2022-01-06] MEDS ORDERED: methaDONE HCL 10 MG TABLET ONE (06:14)
[2022-01-06] MEDS: TORSEMIDE 20 MG TABLET (FP) PO SCH ×2 (06:30→14:14)
[2022-01-06] MEDS: DOCUSATE SODIUM 100 MG CAPSULE (FP) PO SCH ×3 (06:30→21:08)
[2022-01-06] MEDS: metFORMIN HCL 500 MG TABLET (FP) PO SCH ×2 (06:30→16:28)
[2022-01-06] MEDS: INSULIN SLIDING SCALE (NOVOLOG) 1 VIAL SQ SCH ×4 (06:31→21:09)
[2022-01-06] MEDS: INSULIN (LEVEMIR) 100 UNITS/ML UNITS SQ SCH ×2 (06:46→22:13)
[2022-01-06] MEDS: APIXABAN 5 MG TABLET PO SCH ×2 (09:50→21:07)
[2022-01-06] MEDS: SILVER SULFADIAZINE 1% TOP CREAM 50 GM JAR TP SCH (09:50)
[2022-01-06] MEDS: NICOTINE 7 MG/24 HOURS TOPICAL PATCH TD SCH (09:50)
[2022-01-06] MEDS: HYDROCORTISONE 2.5% TOPICAL CREAM 30 GM TUBE TP SCH ×2 (09:50→21:08)
[2022-01-06] MEDS: PRENATAL VITAMINS W/ FOLIC ACID TABLET (FP) PO SCH (09:50)
[2022-01-06] MEDS: LISINOPRIL 10 MG TABLET PO SCH (10:50)
[2022-01-06] MEDS: DIGOXIN 0.125 MG TABLET PO SCH (10:50)
[2022-01-06] MEDS: CARVEDILOL 25 MG TABLET (FP) PO SCH ×2 (10:50→21:08)
[2022-01-06] MEDS: MELATONIN 5 MG TABLETS PO SCH (21:08)
[2022-01-06] MEDS: THIAMINE HCL 100 MG TABLET (FP) PO SCH (21:54)
[2022-01-07] MEDS ORDERED: methaDONE HCL 10 MG TABLET ONE (03:09)
[2022-01-07] MEDS ORDERED: methaDONE HCL 40 MG DISPERSABLE TABLET ONE (03:09)
[2022-01-07] MEDS: TORSEMIDE 20 MG TABLET (FP) PO SCH ×2 (06:28→14:22)
[2022-01-07] MEDS: DOCUSATE SODIUM 100 MG CAPSULE (FP) PO SCH ×3 (06:28→21:31)
[2022-01-07] MEDS: metFORMIN HCL 500 MG TABLET (FP) PO SCH ×2 (06:28→16:35)
[2022-01-07] MEDS: INSULIN SLIDING SCALE (NOVOLOG) 1 VIAL SQ SCH ×4 (06:30→21:33)
[2022-01-07] MEDS: INSULIN (LEVEMIR) 100 UNITS/ML UNITS SQ SCH ×2 (06:57→21:33)
[2022-01-07] MEDS: LISINOPRIL 10 MG TABLET PO SCH (09:59)
[2022-01-07] MEDS: CARVEDILOL 25 MG TABLET (FP) PO SCH ×2 (09:59→21:31)
[2022-01-07] MEDS: APIXABAN 5 MG TABLET PO SCH ×2 (09:59→21:31)
[2022-01-07] MEDS: DIGOXIN 0.125 MG TABLET PO SCH (10:00)
[2022-01-07] MEDS: HYDROCORTISONE 2.5% TOPICAL CREAM 30 GM TUBE TP SCH ×2 (10:01→21:33)
[2022-01-07] MEDS: PRENATAL VITAMINS W/ FOLIC ACID TABLET (FP) PO SCH (10:01)
[2022-01-07] MEDS: SILVER SULFADIAZINE 1% TOP CREAM 50 GM JAR TP SCH (10:01)
[2022-01-07] MEDS: NICOTINE 7 MG/24 HOURS TOPICAL PATCH TD SCH (10:01)
[2022-01-07] MEDS: MELATONIN 5 MG TABLETS PO SCH (21:31)
[2022-01-07] MEDS: THIAMINE HCL 100 MG TABLET (FP) PO SCH (21:31)
[2022-01-07] MEDS ORDERED: INSULIN (NOVOLOG) ASPART 100 UNITS/ML 10ML VIAL ONE (21:48)
[2022-01-08] MEDS ORDERED: methaDONE HCL 40 MG DISPERSABLE TABLET ONE (03:13)
[2022-01-08] MEDS ORDERED: methaDONE HCL 10 MG TABLET ONE (03:13)
[2022-01-08] MEDS: DOCUSATE SODIUM 100 MG CAPSULE (FP) PO SCH ×3 (06:31→21:07)
[2022-01-08] MEDS: metFORMIN HCL 500 MG TABLET (FP) PO SCH ×2 (06:31→18:13)
[2022-01-08] MEDS: TORSEMIDE 20 MG TABLET (FP) PO SCH ×2 (06:31→13:56)
[2022-01-08] MEDS: INSULIN SLIDING SCALE (NOVOLOG) 1 VIAL SQ SCH ×4 (06:33→21:10)
[2022-01-08] MEDS: INSULIN (LEVEMIR) 100 UNITS/ML UNITS SQ SCH ×2 (06:52→21:09)
[2022-01-08] MEDS: PRENATAL VITAMINS W/ FOLIC ACID TABLET (FP) PO SCH (10:02)
[2022-01-08] MEDS: LISINOPRIL 10 MG TABLET PO SCH (10:03)
[2022-01-08] MEDS: HYDROCORTISONE 2.5% TOPICAL CREAM 30 GM TUBE TP SCH ×2 (10:03→21:08)
[2022-01-08] MEDS: APIXABAN 5 MG TABLET PO SCH ×2 (10:03→21:07)
[2022-01-08] MEDS: SILVER SULFADIAZINE 1% TOP CREAM 50 GM JAR TP SCH (10:04)
[2022-01-08] MEDS: NICOTINE 7 MG/24 HOURS TOPICAL PATCH TD SCH (10:04)
[2022-01-08] MEDS: DIGOXIN 0.125 MG TABLET PO SCH (10:04)
[2022-01-08] MEDS: CARVEDILOL 25 MG TABLET (FP) PO SCH ×2 (10:05→21:07)
[2022-01-08] MEDS: THIAMINE HCL 100 MG TABLET (FP) PO SCH (21:06)
[2022-01-08] MEDS: MELATONIN 5 MG TABLETS PO SCH (21:06)
[2022-01-08] MEDS ORDERED: INSULIN (NOVOLOG) ASPART 100 UNITS/ML 10ML VIAL ONE (22:38)
[2022-01-08] MEDS ORDERED: INSULIN (LEVEMIR) 100 UNITS/ML UNITS SQ ONE (22:39)
[2022-01-09] MEDS ORDERED: methaDONE HCL 10 MG TABLET ONE (03:17)
[2022-01-09] MEDS ORDERED: methaDONE HCL 40 MG DISPERSABLE TABLET ONE (03:17)
[2022-01-09] MEDS: metFORMIN HCL 500 MG TABLET (FP) PO SCH ×2 (06:45→16:30)
[2022-01-09] MEDS: TORSEMIDE 20 MG TABLET (FP) PO SCH ×2 (06:45→13:59)
[2022-01-09] MEDS: DOCUSATE SODIUM 100 MG CAPSULE (FP) PO SCH ×3 (06:45→21:26)
[2022-01-09] MEDS: INSULIN SLIDING SCALE (NOVOLOG) 1 VIAL SQ SCH ×4 (06:46→21:29)
[2022-01-09] MEDS: INSULIN (LEVEMIR) 100 UNITS/ML UNITS SQ SCH ×2 (06:56→21:27)
[2022-01-09] MEDS: NICOTINE 7 MG/24 HOURS TOPICAL PATCH TD SCH (10:19)
[2022-01-09] MEDS: SILVER SULFADIAZINE 1% TOP CREAM 50 GM JAR TP SCH (10:19)
[2022-01-09] MEDS: PRENATAL VITAMINS W/ FOLIC ACID TABLET (FP) PO SCH (10:19)
[2022-01-09] MEDS: HYDROCORTISONE 2.5% TOPICAL CREAM 30 GM TUBE TP SCH ×2 (10:19→21:29)
[2022-01-09] MEDS: ACETAMINOPHEN 325 MG TABLET (FP) PO PRN (10:21)
[2022-01-09] MEDS: LISINOPRIL 10 MG TABLET PO SCH (11:08)
[2022-01-09] MEDS: DIGOXIN 0.125 MG TABLET PO SCH (11:08)
[2022-01-09] MEDS: APIXABAN 5 MG TABLET PO SCH ×2 (11:08→21:26)
[2022-01-09] MEDS: CARVEDILOL 25 MG TABLET (FP) PO SCH ×2 (11:10→21:26)
[2022-01-09] MEDS ORDERED: INSULIN (NOVOLOG) ASPART 100 UNITS/ML 10ML VIAL ONE (12:18)
[2022-01-09] MEDS: THIAMINE HCL 100 MG TABLET (FP) PO SCH (21:26)
[2022-01-09] MEDS: MELATONIN 5 MG TABLETS PO SCH (21:26)
[2022-01-10] MEDS ORDERED: methaDONE HCL 40 MG DISPERSABLE TABLET ONE (03:12)
[2022-01-10] MEDS ORDERED: methaDONE HCL 10 MG TABLET ONE (03:12)
[2022-01-10] MEDS: DOCUSATE SODIUM 100 MG CAPSULE (FP) PO SCH ×3 (06:45→21:23)
[2022-01-10] MEDS: TORSEMIDE 20 MG TABLET (FP) PO SCH ×2 (06:45→14:39)
[2022-01-10] MEDS: metFORMIN HCL 500 MG TABLET (FP) PO SCH ×2 (06:45→16:29)
[2022-01-10] MEDS: INSULIN SLIDING SCALE (NOVOLOG) 1 VIAL SQ SCH ×4 (07:18→21:26)
[2022-01-10] MEDS: INSULIN (LEVEMIR) 100 UNITS/ML UNITS SQ SCH ×2 (07:18→21:24)
[2022-01-10] MEDS: ACETAMINOPHEN 325 MG TABLET (FP) PO PRN (08:52)
[2022-01-10] MEDS: CARVEDILOL 25 MG TABLET (FP) PO SCH ×2 (10:07→21:23)
[2022-01-10] MEDS: NICOTINE 7 MG/24 HOURS TOPICAL PATCH TD SCH (10:07)
[2022-01-10] MEDS: PRENATAL VITAMINS W/ FOLIC ACID TABLET (FP) PO SCH (10:07)
[2022-01-10] MEDS: LISINOPRIL 10 MG TABLET PO SCH (10:07)
[2022-01-10] MEDS: HYDROCORTISONE 2.5% TOPICAL CREAM 30 GM TUBE TP SCH ×2 (10:07→21:23)
[2022-01-10] MEDS: DIGOXIN 0.125 MG TABLET PO SCH (10:07)
[2022-01-10] MEDS: APIXABAN 5 MG TABLET PO SCH ×2 (10:07→21:23)
[2022-01-10] MEDS: SILVER SULFADIAZINE 1% TOP CREAM 50 GM JAR TP SCH (10:08)
[2022-01-10] MEDS: THIAMINE HCL 100 MG TABLET (FP) PO SCH (21:22)
[2022-01-10] MEDS: MELATONIN 5 MG TABLETS PO SCH (21:22)
[2022-01-11] MEDS ORDERED: methaDONE HCL 40 MG DISPERSABLE TABLET ONE (03:20)
[2022-01-11] MEDS ORDERED: methaDONE HCL 10 MG TABLET ONE (03:20)
[2022-01-11] MEDS: DOCUSATE SODIUM 100 MG CAPSULE (FP) PO SCH ×3 (06:22→21:47)
[2022-01-11] MEDS: TORSEMIDE 20 MG TABLET (FP) PO SCH ×2 (06:22→13:49)
[2022-01-11] MEDS: metFORMIN HCL 500 MG TABLET (FP) PO SCH ×2 (06:22→16:35)
[2022-01-11] MEDS: INSULIN (LEVEMIR) 100 UNITS/ML UNITS SQ SCH ×2 (06:25→21:50)
[2022-01-11] MEDS: INSULIN SLIDING SCALE (NOVOLOG) 1 VIAL SQ SCH ×4 (06:34→21:50)
[2022-01-11] MEDS ORDERED: INSULIN (LEVEMIR) 100 UNITS/ML UNITS SQ ONE (06:38)
[2022-01-11] MEDS: SILVER SULFADIAZINE 1% TOP CREAM 50 GM JAR TP SCH (10:00)
[2022-01-11] MEDS: APIXABAN 5 MG TABLET PO SCH ×2 (10:00→21:47)
[2022-01-11] MEDS: DIGOXIN 0.125 MG TABLET PO SCH (10:00)
[2022-01-11] MEDS: LISINOPRIL 10 MG TABLET PO SCH (10:00)
[2022-01-11] MEDS: CARVEDILOL 25 MG TABLET (FP) PO SCH ×2 (10:00→21:48)
[2022-01-11] MEDS: HYDROCORTISONE 2.5% TOPICAL CREAM 30 GM TUBE TP SCH ×2 (10:01→21:48)
[2022-01-11] MEDS: PRENATAL VITAMINS W/ FOLIC ACID TABLET (FP) PO SCH (10:01)
[2022-01-11] MEDS: NICOTINE 7 MG/24 HOURS TOPICAL PATCH TD SCH (10:01)
[2022-01-11] MEDS: THIAMINE HCL 100 MG TABLET (FP) PO SCH (21:47)
[2022-01-11] MEDS: MELATONIN 5 MG TABLETS PO SCH (21:48)
[2022-01-12] MEDS ORDERED: methaDONE HCL 40 MG DISPERSABLE TABLET ONE (03:11)
[2022-01-12] MEDS ORDERED: methaDONE HCL 10 MG TABLET ONE (03:11)
[2022-01-12] MEDS: TORSEMIDE 20 MG TABLET (FP) PO SCH ×2 (06:14→13:31)
[2022-01-12] MEDS: DOCUSATE SODIUM 100 MG CAPSULE (FP) PO SCH ×3 (06:14→21:08)
[2022-01-12] MEDS: metFORMIN HCL 500 MG TABLET (FP) PO SCH ×2 (07:47→16:47)
[2022-01-12] MEDS: INSULIN SLIDING SCALE (NOVOLOG) 1 VIAL SQ SCH ×4 (07:51→21:08)
[2022-01-12] MEDS: INSULIN (LEVEMIR) 100 UNITS/ML UNITS SQ SCH ×2 (07:51→21:07)
[2022-01-12] MEDS: PRENATAL VITAMINS W/ FOLIC ACID TABLET (FP) PO SCH (10:20)
[2022-01-12] MEDS: LISINOPRIL 10 MG TABLET PO SCH (10:20)
[2022-01-12] MEDS: APIXABAN 5 MG TABLET PO SCH ×2 (10:20→21:08)
[2022-01-12] MEDS: HYDROCORTISONE 2.5% TOPICAL CREAM 30 GM TUBE TP SCH ×2 (10:20→21:08)
[2022-01-12] MEDS: CARVEDILOL 25 MG TABLET (FP) PO SCH ×2 (10:20→21:08)
[2022-01-12] MEDS: NICOTINE 7 MG/24 HOURS TOPICAL PATCH TD SCH (10:21)
[2022-01-12] MEDS: DIGOXIN 0.125 MG TABLET PO SCH (10:21)
[2022-01-12] MEDS: SILVER SULFADIAZINE 1% TOP CREAM 50 GM JAR TP SCH (10:22)
[2022-01-12] MEDS: THIAMINE HCL 100 MG TABLET (FP) PO SCH (21:08)
[2022-01-12] MEDS: MELATONIN 5 MG TABLETS PO SCH (21:08)
[2022-01-12] MEDS ORDERED: INSULIN (LEVEMIR) 100 UNITS/ML UNITS SQ ONE (22:08)
[2022-01-13] MEDS ORDERED: methaDONE HCL 40 MG DISPERSABLE TABLET ONE (06:40)
[2022-01-13] MEDS ORDERED: methaDONE HCL 10 MG TABLET ONE (06:40)
[2022-01-13] MEDS: TORSEMIDE 20 MG TABLET (FP) PO SCH ×2 (06:41→13:04)
[2022-01-13] MEDS: DOCUSATE SODIUM 100 MG CAPSULE (FP) PO SCH ×3 (06:41→21:03)
[2022-01-13] MEDS: metFORMIN HCL 500 MG TABLET (FP) PO SCH ×2 (06:42→16:32)
[2022-01-13] MEDS: INSULIN (LEVEMIR) 100 UNITS/ML UNITS SQ SCH ×2 (07:13→21:04)
[2022-01-13] MEDS: INSULIN SLIDING SCALE (NOVOLOG) 1 VIAL SQ SCH ×4 (07:13→21:07)
[2022-01-13] MEDS: NICOTINE 7 MG/24 HOURS TOPICAL PATCH TD SCH (09:16)
[2022-01-13] MEDS: PRENATAL VITAMINS W/ FOLIC ACID TABLET (FP) PO SCH (09:16)
[2022-01-13] MEDS: HYDROCORTISONE 2.5% TOPICAL CREAM 30 GM TUBE TP SCH ×2 (09:16→21:04)
[2022-01-13] MEDS: LISINOPRIL 10 MG TABLET PO SCH (09:16)
[2022-01-13] MEDS: CARVEDILOL 25 MG TABLET (FP) PO SCH ×2 (09:16→21:03)
[2022-01-13] MEDS: DIGOXIN 0.125 MG TABLET PO SCH (09:16)
[2022-01-13] MEDS: SILVER SULFADIAZINE 1% TOP CREAM 50 GM JAR TP SCH (09:17)
[2022-01-13] MEDS: APIXABAN 5 MG TABLET PO SCH ×2 (10:07→21:03)
[2022-01-13] MEDS: MELATONIN 5 MG TABLETS PO SCH (21:03)
[2022-01-13] MEDS: THIAMINE HCL 100 MG TABLET (FP) PO SCH (21:03)
[2022-01-13] MEDS ORDERED: INSULIN (NOVOLOG) ASPART 100 UNITS/ML 10ML VIAL ONE (22:11)
[2022-01-13] MEDS ORDERED: INSULIN (LEVEMIR) 100 UNITS/ML UNITS SQ ONE (22:12)
[2022-01-14] MEDS ORDERED: methaDONE HCL 10 MG TABLET ONE (03:28)
[2022-01-14] MEDS ORDERED: methaDONE HCL 40 MG DISPERSABLE TABLET ONE (03:28)
[2022-01-14] MEDS: TORSEMIDE 20 MG TABLET (FP) PO SCH ×2 (06:32→13:27)
[2022-01-14] MEDS: DOCUSATE SODIUM 100 MG CAPSULE (FP) PO SCH ×3 (06:32→21:31)
[2022-01-14] MEDS: metFORMIN HCL 500 MG TABLET (FP) PO SCH ×2 (06:32→16:22)
[2022-01-14] MEDS: INSULIN SLIDING SCALE (NOVOLOG) 1 VIAL SQ SCH ×4 (06:51→21:33)
[2022-01-14] MEDS: INSULIN (LEVEMIR) 100 UNITS/ML UNITS SQ SCH ×2 (07:05→21:31)
[2022-01-14] MEDS: SILVER SULFADIAZINE 1% TOP CREAM 50 GM JAR TP SCH (09:59)
[2022-01-14] MEDS: APIXABAN 5 MG TABLET PO SCH ×2 (10:00→21:31)
[2022-01-14] MEDS: DIGOXIN 0.125 MG TABLET PO SCH (10:00)
[2022-01-14] MEDS: LISINOPRIL 10 MG TABLET PO SCH (10:00)
[2022-01-14] MEDS: HYDROCORTISONE 2.5% TOPICAL CREAM 30 GM TUBE TP SCH ×2 (10:01→21:31)
[2022-01-14] MEDS: NICOTINE 7 MG/24 HOURS TOPICAL PATCH TD SCH (10:01)
[2022-01-14] MEDS: PRENATAL VITAMINS W/ FOLIC ACID TABLET (FP) PO SCH (10:01)
[2022-01-14] MEDS: CARVEDILOL 25 MG TABLET (FP) PO SCH ×2 (10:01→21:31)
[2022-01-14] MEDS: ACETAMINOPHEN 325 MG TABLET (FP) PO PRN (10:02)
[2022-01-14] MEDS: THIAMINE HCL 100 MG TABLET (FP) PO SCH (21:30)
[2022-01-14] MEDS: MELATONIN 5 MG TABLETS PO SCH (21:30)
[2022-01-15] MEDS ORDERED: methaDONE HCL 40 MG DISPERSABLE TABLET ONE (03:21)
[2022-01-15] MEDS ORDERED: methaDONE HCL 10 MG TABLET ONE (03:21)
[2022-01-15] MEDS: metFORMIN HCL 500 MG TABLET (FP) PO SCH (06:26)
[2022-01-15] MEDS: DOCUSATE SODIUM 100 MG CAPSULE (FP) PO SCH (06:26)
[2022-01-15] MEDS: TORSEMIDE 20 MG TABLET (FP) PO SCH (06:26)
[2022-01-15] MEDS: INSULIN (LEVEMIR) 100 UNITS/ML UNITS SQ SCH (06:28)
[2022-01-15] MEDS: INSULIN SLIDING SCALE (NOVOLOG) 1 VIAL SQ SCH (06:55)
[2022-01-15 07:12] VITALS: TEMP 97.1
[2022-01-15] MEDS: PRENATAL VITAMINS W/ FOLIC ACID TABLET (FP) PO SCH (09:15)
[2022-01-15] MEDS: APIXABAN 5 MG TABLET PO SCH (09:15)
[2022-01-15] MEDS: CARVEDILOL 25 MG TABLET (FP) PO SCH (09:15)
[2022-01-15] MEDS: HYDROCORTISONE 2.5% TOPICAL CREAM 30 GM TUBE TP SCH (09:15)
[2022-01-15] MEDS: LISINOPRIL 10 MG TABLET PO SCH (09:15)
[2022-01-15] MEDS: DIGOXIN 0.125 MG TABLET PO SCH (09:16)
[2022-01-15] MEDS: SILVER SULFADIAZINE 1% TOP CREAM 50 GM JAR TP SCH (09:16)
[2022-01-15] MEDS: NICOTINE 7 MG/24 HOURS TOPICAL PATCH TD SCH (09:16)
[2022-01-15 09:17] VITALS: PULSE 82
[2022-01-15 09:19] VITALS: BP 114/73
== END 2022-01-15 10:13 | disposition home or self-care (01) | DRG 772 ==
LOC: YASAS 15:14 → Y3E 15:15
PROVIDERS: ADMIT Allergy & Immunology; ATTEND Psychiatry & Neurology Pain Medicine
PROC: HZ42ZZZ Group Counseling for Substance Abuse Treatment, Cognitive-Behavioral (ICD-10-PCS; principal; 2021-12-29)
DX: F11.20 Opioid dependence, uncomplicated (principal); F14.20 Cocaine dependence, uncomplicated; F10.20 Alcohol dependence, uncomplicated; F17.210 Nicotine dependence, cigarettes, uncomplicated; F19.24 Other psychoactive substance dependence with psychoactive substance-induced mood disorder; E11.9 Type 2 diabetes mellitus without complications; Z79.4 Long term (current) use of insulin; I25.10 Atherosclerotic heart disease of native coronary artery without angina pectoris; I11.0 Hypertensive heart disease with heart failure; I50.9 Heart failure, unspecified; I83.893 Varicose veins of bilateral lower extremities with other complications; K64.9 Unspecified hemorrhoids; E66.9 Obesity, unspecified; Z68.43 Body mass index [BMI] 50.0-59.9, adult; Z95.0 Presence of cardiac pacemaker; Z95.5 Presence of coronary angioplasty implant and graft; Z79.01 Long term (current) use of anticoagulants
CPT/HCPCS: 82962